=== PATIENT | female | born 1950 | race Caucasian/White ===

== ENCOUNTER 2017-05-05 15:19 | Observation (INO) | payer MEDICARE ==
[2017-05-05 16:37] LABS: Bilirubin Negative (Negative); Blood, Urine Large (Negative); Clarity CLEAR (Clear); Glucose, Urine (Dipstick) Negative (Negative); Leukocyte Small (Negative); Nitrite Positive (Negative); Protein, Urine (Dipstick) Negative (Neg-Trace); Specific Gravity, Urine 1.009 (1.002-1.036); Urobilinogen 0.2 mg/dL (0.2-1.0); pH, Urine 5.5 (5.0-9.0)
[2017-05-05 16:41] LABS: Bacteria/HPF 2+ HPF (None Seen); Hyaline Casts/LPF 0-3 HYALINE CAST LPF (0-3 Hyaline); Pathc Cast-AUWi Flag 0.29 (0-2.49); Squamous Epithelial 0-3 HPF (0-3)
[2017-05-05 17:21] LABS: CKMB 2.8 ng/mL (0-6.6); Troponin I 0.057 ng/mL (< 0.028)
--- NOTE | 2017-05-05 17:29 | CT ---
CT OF THE BRAIN WITHOUT CONTRAST 05/05/17 INDICATION: Dizziness with nausea and diaphoresis. [place] like passing out with no loss of consciousness. COMPARISON: MR of the brain dated 12/16/14. FINDINGS: there are stable calcific densities seen within the subcutaneous tissues overlying the left frontopar ietal scalp likely reflecting small sebaceous cysts. No acute infarct, hemorrhage, or hydrocephalus i s present. Septum pellucidum and third ventricle are midline. The mastoid air cells are clear. The pa ranasal sinuses are clear. No acute osseous abnormality is evident. IMPRESSION: No acute intracranial abnormality. POS: TOMASA
[2017-05-05 19:17] VITALS: BMI 20.3
[2017-05-05 22:27] LABS: Troponin I 0.043 ng/mL (< 0.028)
[2017-05-05] MEDS ORDERED: Nitroglycerin 0.4 MG TAB (25 Tab Bottle) PO PRN (22:32)
[2017-05-05] MEDS ORDERED: Acetaminophen 325 MG TAB PO PRN (22:32)
[2017-05-05] MEDS ORDERED: Ondansetron HCl/PF 4 MG/2 ML Vial IVP PRN (22:32)
[2017-05-05] MEDS ORDERED: Senokot 8.6 MG TAB PO PRN (22:32)
[2017-05-05] MEDS ORDERED: Calcium Carbonate 500 MG ChewTAB PO PRN (22:32)
[2017-05-05] MEDS ORDERED: Ondansetron ODT 4 MG TAB PO PRN (22:32)
--- NOTE | 2017-05-05 22:41 | PDOC.EVN ---
Event Note - Event Note Event Note: Patient seen and examined. Note dictated. Full code. DPOA - self/family
--- NOTE | 2017-05-05 23:14 | HP ---
DATE OF ADMISSION: 05/05/2017 PRIMARY CARE PHYSICIAN: Dr. Carlton. PRIMARY ENGINE DESIGNER: Dr. Jean Carlos Hart in the past. Patient does not see any superintendent service at this time. CHIEF COMPLAINT: Near syncopal episode. HISTORY OF PRESENT ILLNESS: Patient is a 66-year-old female with chronic left-bundle branch block an d loop recorder placement in 2011, presented to the emergency room with a near syncopal episode that happened on night around 2:00 a.m. This happened when she returned to her bed from the bath room. She had sudden onset of nausea along with dizziness and profuse diaphoresis. She also had george tigo, which lasted for less than one minute. She went back to sleep. No loss of consciousness repor dickson. Over the last two days, patient has generalized weakness along with lightheadedness. She does not fe el back to her baseline. She then decided to come to the emergency room. Patient denies any chest pain, shortness of breath, palpitations, focal neurologic deficit, double vi jean marie, seizure, tongue biting, or urinary or bladder incontinence. 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 No tinnitus or ear discharge reported. PAST MEDICAL HISTORY: 1. Chronic left-bundle branch block. 2. History of syncope in 2011, status post loop-recorder placement. 3. Hypertension. 4. Hyperlipidemia. 5. 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 PAST SURGICAL HISTORY: 1. Hysterectomy. 2. Left foot surgery. 3. Left hip surgery. ALLERGIES: Patient is allergic to CODEINE. CURRENT HOME MEDICATIONS: 1. Aspirin 81 mg daily. 2. Zocor 40 mg at bedtime. 3. Ellerbe 3 and vitamin B complex daily. 4. Bactrim double-strength 1 tablet daily. SOCIAL HISTORY: Patient continues to smoke on a daily basis. No alcohol or drug use. FAMILY HISTORY: Mother has some form of heart disease and hypertension. REVIEW OF SYSTEMS: The following complete review of systems was negative, unless otherwise mentioned in the HPI or below: Constitutional: Weight loss or gain, ability to conduct usual activities. Sk in: Rash, itching. Eyes: Double vision, pain. ENT/Mouth: Nose bleeding, neck stiffness, pain, te nderness. Cardiovascular: Palpitations, dyspnea on exertion, orthopnea. Respiratory: Shortness of breath, wheezing, cough, hemoptysis, fever, or night sweats. Gastrointestinal: Poor appetite, abdo nohemy pain, heartburn, nausea, vomiting, constipation, or diarrhea. Genitourinary: Urgency, frequen cy, dysuria, nocturia. Musculoskeletal: Pain, swelling. Neurologic/Psychiatric: Anxiety, depressi on. Allergy/Immunologic: Skin rash, bleeding tendency. PHYSICAL EXAMINATION: VITAL SIGNS: In the emergency room showed temperature 98.4, respirations 16, pulse 61, blood pressur e 167/46 with O2 saturation 98% on room air. GENERAL: A 66-year-old female in no apparent distress. HEENT: Head atraumatic, normocephalic. Sclerae anicteric. Moist mucous membrane. No oral lesion. NECK: Supple, no JVD, no carotid bruit. LUNGS: Clear to auscultation bilaterally. No wheezing, rales, or rhonchi. HEART: S1, S2 present. Regular rate and rhythm. No murmur, rubs, or gallops appreciated. ABDOMEN: Soft, nontender, bowel sounds present. EXTREMITIES: No edema or calf tenderness. NEUROLOGIC: Cranial nerves II-XII were normal on examination. No new focal neurologic deficit appre ciated. PSYCHIATRY: Alert, awake, oriented x3. SKIN: Warm and dry. LYMPH NODES: No palpable lymph nodes in the neck. PERIPHERAL VASCULAR: Radial pulses palpable bilaterally. MUSCULOSKELETAL: No joint swelling or tenderness. LABORATORY FINDINGS: 1. EKG by my review as discussed above. 2. Troponin of 0.057 with normal CK-MB. BUN 10, creatinine 0.93. CBC showed WBC 6.8 with hemoglobi n 14.6. D-dimer was 0.69. Chest x-ray by my review showed some nodular density in the left upper lo be. Repeat chest x-ray or CT scan as outpatient as recommended. Primary care physician advised to mary frazier. 3. CT scan of the brain by my review was negative. IMPRESSION: 1. Near syncopal episode of unclear etiology. Possibilities include neurocardiogenic syncope, quest ionable anginal equivalent. 2. Elevated troponins, probably secondary to demand ischemia. 3. Chronic smoker for more than 40 years. 4. History of syncope, status post loop-recorder. 5. Chronic left-bundle branch block. 6. Chronic kidney disease, stage 2. 7. Nodular density in the left upper lobe on chest x-ray. Primary care physician advised to follow. 8. CODEINE allergy. 9. Hypertension. 10. Hyperlipidemia. 11. History of urinary tract infection on chronic Bactrim prophylaxis. 12. Chronic right ear hearing loss. 13. History of post-polio syndrome with residual weakness in the left lower extremity. PLAN: Patient will be monitored in the telemetry unit. Loop recorder will be interrogated. Orthost atic vitals will be checked. We will consult Physical Therapy. Echocardiogram last admission showed normal left ventricular ejection fraction of 50%-55%. We will schedule a Cardiolite stress test in a.m. Plan of care was discussed with the patient in detail. She stated understanding.
[2017-05-06] MEDS ORDERED: Sulfameth/Trimethoprim DS 800-160mg TAB PO SCH ×2 (00:15→21:00)
[2017-05-06] MEDS ORDERED: Prevnar 13-Val Conj/PF 0.5 ML SYRINGE IM ONE (09:00)
[2017-05-06] MEDS ORDERED: Regadenoson 0.4 MG/5 ML SYRINGE ONE (10:33)
[2017-05-06] MEDS: Aspirin 81 mg Enteric Coated Tablet PO SCH (11:44)
[2017-05-06] MEDS: Docusate 100 MG CAP PO SCH ×2 (11:44→20:50)
[2017-05-06] MEDS: Famotidine 20 MG TAB PO SCH ×2 (11:47→20:50)
--- NOTE | 2017-05-06 12:38 | NM ---
NUCLEAR MEDICINE CARDIAC STRESS TEST AND EJECTION FRACTION: HISTORY: Hypertension, dyslipidemia, and smoker. COMPARISON: None. TECHNIQUE: Stress and rest performed after the intravenous administration of 27 and 10 mCi Technetium 99m sestam ibi. FINDINGS: There is a small scar of the septum of the left ventricle. There is mild hypokinesia of the septum. Ejection fraction is calculated at 56%. No ischemia. IMPRESSION: Small scar of the left ventricular septum with hypokinesia. POS: RADHA
--- NOTE | 2017-05-06 17:05 | CON ---
DATE OF CONSULTATION: 05/06/2017 HISTORY OF PRESENT ILLNESS: Patient is a 66-year-old woman who presents for evaluation of dizziness and diaphoresis. The patient was seen initially in 2011 when she had a syncopal episode. The patient underwent a cardiac evaluation and eventually an EP study. The patient subsequently had placement of implantable loop recorder. The patient did not come for followup. She states she had no further episodes until the day of admission. The patient was in her usual state of health when she got up to go to the bathroom and she suddenly became diaphoretic. She states that she felt dizzy for approximately 20 seconds. The patient did not lose consciousness. The patient denied having any chest discomfort. The patient has multiple cardiac risk factors including hypercholesterolemia and a history of tobacco abuse. PAST MEDICAL HISTORY: 1. Hypertension. 2. Dyslipidemia. 3. Postpolio syndrome. 4. Chronic urinary tract infection. PAST SURGICAL HISTORY: Foot surgery, hip surgery and hysterectomy. ALLERGIES: CODEINE. MEDICATIONS ON ADMISSION: Zocor 40 at bedtime, Bactrim 1 tablet daily, aspirin 81 daily. SOCIAL HISTORY: Patient has a long history of tobacco abuse and continues to smoke one pack a day. FAMILY HISTORY: There is no strong family history of coronary artery disease. REVIEW OF SYSTEMS: Ten-point system otherwise unremarkable. No history of easy bruising or bleeding, bright red blood per rectum. PHYSICAL EXAMINATION: GENERAL APPEARANCE: This is a thin woman in no acute distress. VITAL SIGNS: Blood pressure 101/55. NECK: Showed no jugular distention, no carotid bruits. LUNGS: Clear to auscultation. HEART: Regular rate and rhythm, normal S1, S2, no murmurs. ABDOMEN: Nondistended. EXTREMITIES: Showed no edema. SKIN: Warm and dry. NEUROLOGIC: Nonfocal. VASCULAR: Radial pulses are 2+. LABORATORY DATA AND IMAGING DATA: Her laboratory results revealed her to have white blood count 6.8, hemoglobin 14.6, hematocrit 39.1, and platelets are 250. Sodium is 138, potassium 3.8, chloride 104, bicarbonate 22, BUN 10, creatinine is 0.93, troponin is 0.057, BNP is 98. D-dimer was 0.69. White blood cell count 6.8, hemoglobin 14.6, hematocrit 39.1, platelets are 250. Her EKG reveals her to have normal sinus rhythm with a left bundle branch block. IMPRESSION: 1. Diaphoresis/dizziness. 2. Conduction disease with history of a left bundle branch block. 3. Hypertension. 4. Dyslipidemia. 5. Postpolio syndrome. 6. Tobacco abuse. This patient presents with diaphoresis and dizziness. She did not lose consciousness. She has previously undergone an EP evaluation and had a loop recorder placed. The patient's symptoms are concerning for ischemic heart disease. We will await the results of the patient's Cardiolite stress test for further recommendation. We will follow this patient with you through her hospitalization. SVEN
--- NOTE | 2017-05-06 19:36 | PDOC.PN ---
- Subjective Encounter Start Date: 05/06/17 Encounter Start Time: 15:00 Patient seen and examined. No new complaints. No overnight events. No CP/SOB/ syncope - Objective Resuscitation Status: Resuscitation Status FULL:Full Resuscitation MAR Reviewed: Yes Vital Signs & Weight: Vital Signs (12 hours) Temp Pulse Resp BP BP BP BP 05/06/17 15:27 98.4 F 55 L 16 115/57 L 05/06/17 11:47 98.2 F 65 16 100/57 L 96/55 L 96/50 L 05/06/17 08:00 98.3 F 57 L 18 Pulse Ox 05/06/17 15:27 93 L 05/06/17 11:47 94 L 05/06/17 08:00 Weight Weight 126 lb Radiology Reviewed by me: No (Stress test neg) EKG Reviewed by me: Yes (Tele SR) Phys Exam - Physical Examination Constitutional: NAD HEENT: PERRLA Neck: no JVD Respiratory: no wheezing, no rales, no rhonchi, clear to auscultation bilateral Cardiovascular: RRR, no rub no heaves/pulsations Gastrointestinal: soft, non-tender, no distention, positive bowel sounds Musculoskeletal: no edema Neurological: non-focal, normal sensation, moves all 4 limbs Psychiatric: normal affect, A&O x 3 Dx/Plan - Plan DVT proph w/SCDs IMPRESSION: 1. Near syncopal episode of unclear etiology. ?neurocardiogenic vs ?anginal equivalent. 2. Elevated troponins, probably secondary to demand ischemia. 3. Chronic smoker for more than 40 years. 4. History of syncope, status post loop-recorder. 5. Chronic left-bundle branch block. 6. Chronic kidney disease, stage 2. 7. Nodular density in the left upper lobe on chest x-ray. Primary care physician advised to follow. 8. CODEINE allergy. 9. Hypertension. 10. Hyperlipidemia. 11. History of urinary tract infection on chronic Bactrim prophylaxis. 12. Chronic right ear hearing loss. 13. History of post-polio syndrome with residual weakness in the left lower extremity. PLAN: * Loop recorder not functional * Stress test negative * Patient will probably need Event monitor * Urine culture follow up as outpt * Await Cardiology input Review of Systems - Medications/Allergies Allergies/Adverse Reactions: Allergies Allergy/AdvReac Type Severity Reaction Status Date / Time codeine AdvReac Nausea Verified 05/05/17 19:46 Medications: Current Medications Acetaminophen (Tylenol) 650 mg PO Q4H PRN PRN Reason: Headache/Fever or Pain Last Admin: 05/06/17 11:47 Dose: 650 mg Aspirin (Ecotrin) 81 mg PO DAILY [facility] Last Admin: 05/06/17 11:44 Dose: 81 mg Atorvastatin Calcium (Lipitor) 20 mg PO HS [facility] Calcium Carbonate (Tums) 1,000 mg PO Q4H PRN PRN Reason: Heartburn or Indigestion Docusate Sodium (Colace) 100 mg PO BID [facility] Last Admin: 05/06/17 11:44 Dose: Not Given Famotidine (Pepcid) 20 mg PO BID [facility] Last Admin: 05/06/17 11:47 Dose: 20 mg Nitroglycerin (Nitrostat) 0.4 mg PO Q5MIN PRN PRN Reason: Chest Pain Ondansetron HCl (Zofran Odt) 4 mg PO Q6H PRN PRN Reason: Nausea/Vomiting Ondansetron HCl (Zofran) 4 mg IVP Q6H PRN PRN Reason: Nausea/Vomiting Senna (Senokot) 2 tab PO HSPRN PRN PRN Reason: Constipation Trimethoprim/Sulfamethoxazole (Bactrim Ds) 1 tab PO [facility]
[2017-05-06] MEDS ORDERED: Atorvastatin Calcium 20 MG TAB PO SCH (21:00)
[2017-05-07] MEDS ORDERED: Cipro 250 MG TAB PO SCH (06:00)
[2017-05-07 08:14] VITALS: BP 105/66; TEMP 97.6
[2017-05-07] MEDS: Aspirin 81 mg Enteric Coated Tablet PO SCH (08:44)
[2017-05-07] MEDS: Famotidine 20 MG TAB PO SCH (08:45)
[2017-05-07] MEDS: Docusate 100 MG CAP PO SCH (08:45)
--- NOTE | 2017-05-08 11:23 | DIS ---
DATE OF ADMISSION: 05/05/2017 DATE OF DISCHARGE: 05/07/2017 DISCHARGE DISPOSITION: Home. FOLLOWUP: 1. Follow up with primary care physician, Dr. Carlton in 1 week. 2. Follow up with Dr. Jean Carlos Hart as outpatient. 3. Event monitor will be arranged by Dr. Hart. ALLERGIES: The patient is allergic to CODEINE. The patient was seen and examined on the day of discharge. Denies any new complaints. DISCHARGE MEDICATIONS: Sublingual nitroglycerin as needed, meclizine as needed, ciprofloxacin 250 mg twice a day for 5 days. Other home medications were resumed. BRIEF HOSPITAL COURSE: Patient is a 66-year-old female with chronic left bundle branch block and loo p recorder placement in 2011 for syncope, presented to the emergency room with near syncopal episode. Please refer to the history and physical dated 05/05/2017 for further details. The patient was admitted to the hospital with a diagnosis of suspected neurocardiogenic syncope/angin al equivalent. The patient was evaluated by Cardiology, Dr. Jean Carlos Hart. A stress test was perfor med that was negative for reversible ischemia. Troponins were indeterminate with a maximum troponin of 0.057. She has been cleared by Cardiology for discharge. The patient was also found to have urinary tract infection with urine WBC of 7-10 with 2+ bacteria. Urine culture showed E. coli resistant to Bactrim. She will continue ciprofloxacin for the next 5 da ys. FINAL DIAGNOSES: 1. Near syncope of unclear etiology. Event monitor will be arranged. 2. Elevated troponins, probably secondary to demand ischemia. 3. Chronic smoker for more than 40 years. 4. History of syncope in 2011, status post loop recorder. Please note that the loop recorder is not functioning at this time. 5. Chronic kidney disease stage 2. 6. Chronic left bundle branch block. 7. Nodular density in the left upper lobe on chest x-ray. Primary care physician advised to follow. 8. Hypertension. 9. Hyperlipidemia. 10. Escherichia coli urinary tract infection, started on Cipro. 11. History of recurrent urinary tract infections on chronic Bactrim prophylaxis. 12. Chronic right ear hearing loss. 13. History of post-polio syndrome with residual left lower extremity weakness. Plan of care was discussed with the patient. She stated understanding.
== END 2017-05-07 10:58 | disposition home or self-care (01) ==
LOC: ERS 15:19 → 2SW 17:41
PROVIDERS: ADMIT Internal Medicine; ATTEND Internal Medicine
DX: R55 Syncope and collapse (principal); F17.210 Nicotine dependence, cigarettes, uncomplicated; R79.89 Other specified abnormal findings of blood chemistry; I44.7 Left bundle-branch block, unspecified; I12.9 Hypertensive chronic kidney disease with stage 1 through stage 4 chronic kidney disease, or unspecified chronic kidney disease; N18.2 Chronic kidney disease, stage 2 (mild); G14 Postpolio syndrome; N39.0 Urinary tract infection, site not specified; B96.20 Unspecified Escherichia coli [E. coli] as the cause of diseases classified elsewhere; E78.5 Hyperlipidemia, unspecified; H91.8X1 Other specified hearing loss, right ear; Z87.440 Personal history of urinary (tract) infections; Z79.82 Long term (current) use of aspirin; Z79.2 Long term (current) use of antibiotics; Z79.899 Other long term (current) drug therapy; Z88.5 Allergy status to narcotic agent; Z95.818 Presence of other cardiac implants and grafts
CPT/HCPCS: 70450; 78452; 81003; 82553; 84484; 87086; 87186; 93005; 93017; 97139 ×2; 99285; 99406; A9500; G0378; 36415; 90471; 90670; G0009; J2785